=== PATIENT | female | born 1960 | race Caucasian/White ===

== ENCOUNTER 2016-06-15 06:52 | Day surgery (SDC) | payer OTHER ==
[~2016-06-15] VITALS: Ht 162.6 cm; Wt 137.5 kg
[~2016-06-15 06:52] MED LIST: BLOOD GLUCOSE1 EACH MC; CEFTRIAXONE2 G1 IV; CLINDAMYCIN HC300 MG PO; CYCLOBENZAPRINE5 MG PO; DOXYCYCLINE MO100 MG PO; ENDOCET 5-3251 EACH PO; FEMARA2.5 MG PO; FLEXERIL10 MG PO; FLEXERIL5 MG PO; HUMALOG100 UNIT/2 SC; INSULIN SYRING1 EA11 MC; LANTUS 3 M100 UNITS1 SC; LASIX40 MG PO; LEVEMIR100 UNIT/2 SC; LIDODERM 5% P1 PATCH TD; LISINOPRIL10 MG PO; LOPRESSOR25 MG PO; LOTEMAX5 GM BOTH EYES; METFORMIN HCL500 MG PO; NEURONTIN300 MG PO; NOVOLOG 10100 UNITS/ SC; OXYCODONE-ACET1 EACH PO; PERCOCET 5/31 TABLET PO; PROCHLORPERAZIN10 MG PO; RESTASIS 01 DROP/0.4 BOTH EYES; TEST STRIPS MC
[2016-06-15 07:30] VITALS: BP 118/66
[2016-06-15 08:02] LABS: POINT-OF-CARE METER ID UU14174212
[2016-06-15] MEDS ORDERED: NORCO 5/3251 TABLET PO (09:40)
[2016-06-15 10:39] VITALS: BP 122/66
[2016-06-15 11:40] VITALS: BP 126/74
== END 2016-06-15 12:00 | disposition home or self-care (01) ==
LOC: SDC 06:52
PROVIDERS: Surgery
PROC: 0HBU0ZX Excision of Left Breast, Open Approach, Diagnostic (ICD-10-PCS; principal; 2016-06-15)
DX: L08.9 Local infection of the skin and subcutaneous tissue, unspecified (principal); L98.499 Non-pressure chronic ulcer of skin of other sites with unspecified severity; Z85.3 Personal history of malignant neoplasm of breast; I10 Essential (primary) hypertension; E11.9 Type 2 diabetes mellitus without complications; Z87.891 Personal history of nicotine dependence
CPT/HCPCS: 82948; 88305; 88342 TC; J0690; J2250; J2405; J3010